=== PATIENT | male | born 1975 | race Caucasian/White ===

== ENCOUNTER 2024-10-24 03:39 | Inpatient (IN) | payer MEDICAID ==
[~2024-10-24] VITALS: Ht 172.7 cm; Wt 68.9 kg
[2024-10-24] MEDS: ONDANSETRON HCL 4MG/2ML INJ IV ONE (05:13)
[2024-10-24 05:30] VITALS: PULSE 73; RESP 15; O2SAT 98
[2024-10-24 05:31] LABS: BASOPHILS % 0.4 % (0.0-2.0); EOSINOPHILS % 0.2 % (0.0-5.0); HEMATOCRIT. 45.6 % (42.0-52.0); HEMOGLOBIN. 15.0 g/dL (14.0-18.0); LYMPHOCYTES % 11.5 % (20.0-50.0); MEAN PLATELET VOLUME 8.5 fl (7.4-10.4); MONOCYTES % 5.8 % (2.0-8.0); NEUTROPHILS % 82.1 % (40.0-76.0); PLATELET 302 x1000/uL (130-400); RED BLOOD CELL COUNT 4.81 mill/uL (4.7-6.1); RED CELL DISTRIBUTION WIDTH 13.9 % (11.6-14.6)
[2024-10-24 05:32] LABS: CREATININE 0.8 mg/dL (0.6-1.3); UREA NITROGEN BLOOD 9 mg/dL (9-23)
[2024-10-24 05:33] LABS: TROPONIN I HIGH SENSITIVITY 9 ng/L (3.0-53)
[2024-10-24] MEDS: ALBUTEROL (0.083%) 2.5MG/3ML NEB HHN SCH (05:37)
[2024-10-24 05:47] LABS: ETHANOL BLOOD 131 mg/dL (<10)
[2024-10-24 05:50] VITALS: PULSE 79; RESP 17; O2SAT 100
[2024-10-24] MEDS ORDERED: CLONIDINE 0.1MG TABLET PO PRN (07:15)
[2024-10-24] MEDS ORDERED: MAGNESIUM/ALUMINUM HYDROXIDE/SIMETHICONE 30ML UDC PO PRN (07:15)
[2024-10-24 08:00] VITALS: BP_SYST 93; BP_SYST 96; BP_DIAS 57; PULSE 84; PULSE 85; RESP 18; TEMP 36.5; O2SAT 96; O2SAT 98
[2024-10-24 12:00] VITALS: BP_SYST 92; BP_SYST 94; BP_DIAS 52; PULSE 81; RESP 16; RESP 18; TEMP 36.6; O2SAT 96
[2024-10-24 12:38] LABS: TROPONIN I HIGH SENSITIVITY 17 ng/L (3.0-53)
[2024-10-24] MEDS: SODIUM CHLORIDE 0.9% 3ML FLUSH IVF SCH (13:40)
[2024-10-24] MEDS: MVI, ADULT NO.1 10 ML, FOLIC ACID 1 MG, THIAMINE HCL 100 MG in SODIUM CHLORIDE 0.9% 1,0... IV NR (13:40)
[2024-10-24] MEDS: ACETAMINOPHEN 650MG/20.3ML UDC GT PRN (15:25)
[2024-10-24 16:00] VITALS: BP 106/60; PULSE 67; RESP 18; TEMP 36.6; O2SAT 96
[2024-10-24 20:00] VITALS: BP 107/60; PULSE 64; RESP 18; TEMP 36.6; O2SAT 94; O2SAT 98
[2024-10-24] MEDS: ACETAMINOPHEN 325MG TABLET PO PRN (23:50)
[2024-10-25] VITALS: BP 98/50; PULSE 75; RESP 20; TEMP 36.3; O2SAT 96
[2024-10-25 04:00] VITALS: BP 97/52; PULSE 59; RESP 20; TEMP 36.5; O2SAT 98
[2024-10-25 08:00] VITALS: BP 99/54; PULSE 80; RESP 18; TEMP 36.6; O2SAT 97
[2024-10-25 11:09] LABS: *AMPHETAMINES SCREEN URINE PRESUMPTIVE POSITIVE (NEGATIVE); *BARBITURATES SCREEN URINE NEGATIVE (NEGATIVE); *BENZODIAZEPINES SCREEN URINE NEGATIVE (NEGATIVE); *COCAINE SCREEN URINE NEGATIVE (NEGATIVE)
[2024-10-25 11:10] LABS: CANNABINOID URINE SCREEN PRESUMPTIVE POSITIVE (NEGATIVE); ECSTASY MDMA SCREEN URINE CONF.TEST INDICATED (NEGATIVE); METHADONE URINE SCREEN NEGATIVE (NEGATIVE); OPIATES URINE SCREEN NEGATIVE (NEGATIVE); PHENCYCLIDINE URINE SCREEN NEGATIVE (NEGATIVE)
[2024-10-25 12:00] VITALS: BP 121/53; PULSE 81; RESP 18; TEMP 36.8; O2SAT 98
[2024-10-25 16:00] VITALS: BP 128/53; PULSE 81; RESP 17; TEMP 36.8; O2SAT 100
[2024-10-25 20:00] VITALS: BP 127/64; PULSE 75; RESP 17; TEMP 37.8; O2SAT 98
[2024-10-25 22:34] LABS: CLARITY URINE CLEAR (CLEAR); COLOR URINE YELLOW (YELLOW); GLUCOSE URINE NEGATIVE (NEGATIVE); KETONES URINE NEGATIVE (NEGATIVE); LEUKOCYTE ESTERASE URINE NEGATIVE (NEGATIVE); NITRITE URINE NEGATIVE (NEGATIVE); OCCULT BLOOD URINE NEGATIVE (NEGATIVE); PH URINE 6.5 (4.5-8.0); PROTEIN URINE NEGATIVE (NEGATIVE); SPECIFIC GRAVITY URINE 1.012 (1.005-1.030); UROBILINOGEN URINE 1.0 E.U./dL (0.2-1.0)
== END 2024-10-25 21:53 | disposition home or self-care (01) | DRG 52 ==
LOC: ER 03:52 → EDBD 05:31 → 5WST 05:31 → EDBEDREQTM 05:36 → EDBEDREQ 05:36 → ENRESERV 06:01
PROVIDERS: ADMIT Internal Medicine; ATTEND Internal Medicine
DX: G92.8 Other toxic encephalopathy (principal); F10.10 Alcohol abuse, uncomplicated; F17.200 Nicotine dependence, unspecified, uncomplicated; F19.90 Other psychoactive substance use, unspecified, uncomplicated; M47.812 Spondylosis without myelopathy or radiculopathy, cervical region; Y90.6 Blood alcohol level of 120-199 mg/100 ml
CPT/HCPCS: 36415; 71045; 80048; 80305; 80320; 81003; 83880; 84484; 85025; 93005; 94070; 94640; 94664; 98960; 99285; A4606; J2405; J3411; J3490; J7030; G0480